=== PATIENT | female | born 1970 | race Caucasian/White ===

== ENCOUNTER → 2017-10-24 08:29 | Outpatient (CLI) | payer OTHER, SELFPAY ==
[2017-10-24 09:16] LABS: Add Manual Diff / Slide Review NO; Basophils Percent Auto 0.7 % (0-2); Hematocrit 41.6 % (36-46); Hemoglobin 13.8 g/dL (12.0-16.0); Lymphocytes Percent Auto 26.2 % (25-40); Mean Corpuscular HGB Conc 33.1 % (30-36); Mean Corpuscular Hemoglobin 27.9 PG (26-34); Mean Corpuscular Volume 84.2 fL (80-100); Monocytes Percent Auto 8.1 % (3-14); Neutrophils Absolute Auto 6000 /uL (3000-5900); Platelet Count 304 X10^3/uL (150-400); Red Blood Cell Count 4.94 X10^6/uL (4.0-5.2); Red Cell Distribution Width 15.5 % (11.6-14.8); White Blood Cell Count 9.5 X10^3/uL (4.5-11.0)
[2017-10-24 09:41] LABS: Alanine Aminotransferase 32 IU/L (9-52); Albumin 4.4 g/dL (3.5-5.0); Albumin Globulin Ratio 1.5 (1.0-2.8); Alkaline Phosphatase 34 U/L (38-126); BUN Creatinine Ratio 16.7 (6-22); Bilirubin Total 0.7 mg/dL (0.2-1.3); Blood Urea Nitrogen 10 mg/dL (7-17); Calcium 8.8 mg/dL (8.4-10.2); Carbon Dioxide 28 mmol/L (22-32); Chloride 99 mmol/L (98-107); Cholesterol 200 mg/dL (140-199); Estimated Glomerular Filt Rate > 60.0 mL/min (>60); Globulin 2.9 g/dL (1.7-4.1); Glucose 96 mg/dL (70-100); HDL Cholesterol 52 mg/dL (40-60); LDL Cholesterol Calculated 129 mg/dL (<100); Sodium 140 mmol/L (137-145); Total Protein 7.3 g/dL (6.3-8.2); Triglycerides 97 mg/dL (35-150)
[2017-10-24 09:42] LABS: Aspartate Aminotransferase 34 IU/L (14-36); HEMOLYSIS 65 (0-50); Potassium 3.5 mmol/L (3.4-5.1)
== END ==
PROVIDERS: PCP Family Medicine; Visit Provider Family Medicine
DX: E03.9 Hypothyroidism, unspecified (principal); I10 Essential (primary) hypertension
CPT/HCPCS: 36415; 80053; 80061; 85025

== ENCOUNTER → 2018-08-14 12:25 | Outpatient (CLI) | payer OTHER, SELFPAY ==
[2018-08-14 15:00] LABS: Thyroid Stimulating Hormone 3.42 uIU/mL (0.47-4.68)
== END ==
PROVIDERS: PCP Family Medicine; Visit Provider Family Medicine
DX: E03.9 Hypothyroidism, unspecified (principal)
CPT/HCPCS: 36415; 84443

== ENCOUNTER → 2019-09-12 09:09 | Outpatient (CLI) | payer OTHER, SELFPAY ==
[2019-09-12 10:03] LABS: Cholesterol 208 mg/dL (140-199); HDL Cholesterol 36 mg/dL (40-60); LDL Cholesterol Calculated 149 mg/dL (<100); Triglycerides 117 mg/dL (35-150)
[2019-09-12 10:33] LABS: Thyroid Stimulating Hormone 7.22 uIU/mL (0.47-4.68)
== END ==
PROVIDERS: PCP Family Medicine; Referring Provider Family Medicine; Visit Provider Family Medicine
DX: I10 Essential (primary) hypertension (principal); E03.9 Hypothyroidism, unspecified
CPT/HCPCS: 36415; 80061; 84443

== ENCOUNTER → 2019-11-30 10:00 | Outpatient (CLI) | payer OTHER, SELFPAY ==
[2019-11-30 10:50] LABS: Add Manual Diff / Slide Review NO; Basophils Absolute Auto 100 /uL (0-100); Basophils Percent Auto 0.8 % (0-2); Eosinophils Absolute Auto 200 /uL (0-450); Hematocrit 40.1 % (36-46); Hemoglobin 13.3 g/dL (12.0-16.0); Lymphocytes Absolute Auto 2000 /uL (1100-4500); Lymphocytes Percent Auto 25.9 % (25-40); Mean Corpuscular HGB Conc 33.1 % (30-36); Mean Corpuscular Hemoglobin 27.5 PG (26-34); Monocytes Absolute Auto 600 /uL (0-900); Monocytes Percent Auto 7.6 % (3-14); Neutrophils Absolute Auto 5000 /uL (1500-7000); Neutrophils Percent Auto 63.7 % (50-75); Platelet Count 390 X10^3/uL (150-400); Red Blood Cell Count 4.83 X10^6/uL (4.0-5.2); Red Cell Distribution Width 15.1 % (11.6-14.8); White Blood Cell Count 7.9 X10^3/uL (4.5-11.0)
[2019-11-30 11:17] LABS: BUN Creatinine Ratio 16.1 (6-22); Blood Urea Nitrogen 10 mg/dL (7-17); Calcium 9.2 mg/dL (8.4-10.2); Carbon Dioxide 28 mmol/L (22-32); Chloride 101 mmol/L (98-107); Estimated Glomerular Filt Rate > 60.0 mL/min (>60); Glucose 96 mg/dL (70-100); HEMOLYSIS < 15 (0-50); Potassium 3.6 mmol/L (3.4-5.1); Sodium 138 mmol/L (137-145)
[2019-11-30 14:25] LABS: Thyroid Stimulating Hormone 2.88 uIU/mL (0.47-4.68)
== END ==
PROVIDERS: PCP Family Medicine; Referring Provider Family Medicine; Visit Provider Family Medicine
DX: E03.9 Hypothyroidism, unspecified (principal); I10 Essential (primary) hypertension
CPT/HCPCS: 36415; 80048; 84443; 85025

== ENCOUNTER → 2020-08-08 10:57 | Outpatient (CLI) | payer OTHER, SELFPAY ==
[2020-08-08 11:41] LABS: Add Manual Diff / Slide Review NO; Basophils Absolute Auto 100 /uL (0-100); Eosinophils Absolute Auto 100 /uL (0-450); Eosinophils Percent Auto 1.9 % (2-4); Hematocrit 37.8 % (36-46); Hemoglobin 12.5 g/dL (12.0-16.0); Lymphocytes Absolute Auto 2000 /uL (1100-4500); Lymphocytes Percent Auto 28.8 % (25-40); Mean Corpuscular HGB Conc 33.1 % (30-36); Mean Corpuscular Hemoglobin 25.8 PG (26-34); Monocytes Absolute Auto 600 /uL (0-900); Monocytes Percent Auto 8.4 % (3-14); Neutrophils Absolute Auto 4200 /uL (1500-7000); Neutrophils Percent Auto 59.9 % (50-75); Platelet Count 412 X10^3/uL (150-400); Red Blood Cell Count 4.84 X10^6/uL (4.0-5.2); Red Cell Distribution Width 16.9 % (11.6-14.8)
[2020-08-08 12:06] LABS: Alanine Aminotransferase 21 IU/L (<35); Albumin 4.2 g/dL (3.5-5.0); Albumin Globulin Ratio 1.6 (1.0-2.8); Alkaline Phosphatase 47 U/L (38-126); Aspartate Aminotransferase 29 IU/L (14-36); BUN Creatinine Ratio 17.4 (6-22); Bilirubin Total 0.4 mg/dL (0.2-1.3); Blood Urea Nitrogen 12 mg/dL (7-17); Calcium 9.2 mg/dL (8.4-10.2); Carbon Dioxide 29 mmol/L (22-32); Chloride 100 mmol/L (98-107); Cholesterol 188 mg/dL (140-199); Estimated Glomerular Filt Rate > 60.0 mL/min (>60); Globulin 2.6 g/dL (1.7-4.1); Glucose 96 mg/dL (70-100); HDL Cholesterol 35 mg/dL (40-60); HEMOLYSIS < 15 (0-50); LDL Cholesterol Calculated 121 mg/dL (<100); Potassium 3.5 mmol/L (3.4-5.1); Sodium 138 mmol/L (137-145); Total Protein 6.8 g/dL (6.3-8.2); Triglycerides 161 mg/dL (35-150)
[2020-08-08 12:43] LABS: Thyroid Stimulating Hormone 4.95 uIU/mL (0.47-4.68)
[2020-08-08 15:49] LABS: Creatinine Urine Random 459.5 mg/dL; Microalbumi Creatinin Ratio Ur 60.7 ug/mg CR (<30); Microalbumin Urine Random 27.9 mg/dL (0-1.6)
== END ==
PROVIDERS: PCP Family Medicine; Referring Provider Family Medicine; Visit Provider Family Medicine
DX: E03.9 Hypothyroidism, unspecified (principal); I10 Essential (primary) hypertension
CPT/HCPCS: 36415; 80053; 80061; 82043; 82570; 84443; 85025

== ENCOUNTER → 2020-08-24 07:49 | Outpatient (CLI) | payer OTHER, SELFPAY ==
[2020-08-24] MEDS: COVID-19 VACC #1, MRNA(MOD) 100 MCG/0.5 ML VIAL IM (08:04)
== END ==
PROVIDERS: PCP Family Medicine; Visit Provider Internal Medicine
DX: Z23 Encounter for immunization (principal)
CPT/HCPCS: 0011A; 91301

== ENCOUNTER → 2020-09-21 07:40 | Outpatient (CLI) | payer OTHER, SELFPAY ==
[2020-09-21] MEDS: COVID-19 VACC #2, MRNA(MOD) 100 MCG/0.5 ML VIAL IM (07:56)
== END ==
PROVIDERS: PCP Family Medicine; Visit Provider Internal Medicine
DX: Z23 Encounter for immunization (principal)
CPT/HCPCS: 0012A; 91301

== ENCOUNTER → 2021-07-06 08:10 | Outpatient (CLI) | payer OTHER, SELFPAY ==
[2021-07-06 09:22] LABS: Add Manual Diff / Slide Review NO; Basophils Absolute Auto 100 /uL (0-100); Basophils Percent Auto 0.6 % (0-2); Eosinophils Absolute Auto 200 /uL (0-450); Eosinophils Percent Auto 1.9 % (2-4); Hematocrit 38.7 % (36-46); Hemoglobin 12.9 g/dL (12.0-16.0); Lymphocytes Absolute Auto 2600 /uL (1100-4500); Mean Corpuscular HGB Conc 33.3 % (30-36); Mean Corpuscular Hemoglobin 26.3 PG (26-34); Mean Corpuscular Volume 78.9 fL (80-100); Monocytes Absolute Auto 700 /uL (0-900); Monocytes Percent Auto 6.8 % (3-14); Neutrophils Absolute Auto 6100 /uL (1500-7000); Neutrophils Percent Auto 63.7 % (50-75); Platelet Count 373 X10^3/uL (150-400); Red Cell Distribution Width 17.3 % (11.6-14.8); White Blood Cell Count 9.6 X10^3/uL (4.5-11.0)
[2021-07-06 09:54] LABS: Alanine Aminotransferase 23 IU/L (<35); Albumin 4.3 g/dL (3.5-5.0); Albumin Globulin Ratio 1.7 (1.0-2.8); Alkaline Phosphatase 50 U/L (38-126); Aspartate Aminotransferase 31 IU/L (14-36); BUN Creatinine Ratio 11.5 (6-22); Bilirubin Total 0.5 mg/dL (0.2-1.3); Blood Urea Nitrogen 7 mg/dL (7-17); Calcium 9.4 mg/dL (8.4-10.2); Carbon Dioxide 29 mmol/L (22-32); Chloride 99 mmol/L (98-107); Cholesterol 196 mg/dL (140-199); Estimated Glomerular Filt Rate > 60.0 mL/min (>60); Globulin 2.5 g/dL (1.7-4.1); Glucose 103 mg/dL (70-100); HDL Cholesterol 48 mg/dL (40-60); HEMOLYSIS < 15 (0-50); LDL Cholesterol Calculated 117 mg/dL (<100); Potassium 3.4 mmol/L (3.4-5.1); Sodium 137 mmol/L (137-145); Total Protein 6.8 g/dL (6.3-8.2); Triglycerides 153 mg/dL (35-150)
[2021-07-06 10:16] LABS: Thyroid Stimulating Hormone 5.78 uIU/mL (0.47-4.68)
== END ==
PROVIDERS: PCP Family Medicine; Referring Provider Family Medicine; Visit Provider Family Medicine
DX: E03.9 Hypothyroidism, unspecified (principal); I10 Essential (primary) hypertension
CPT/HCPCS: 36415; 80053; 80061; 84443; 85025

== ENCOUNTER → 2021-07-17 09:27 | Outpatient (CLI) | payer OTHER, SELFPAY ==
--- NOTE | 2021-07-17 09:30 | DI.RAD.S_ITS ---
PROCEDURE: XR FOOT RT MIN 3V INDICATIONS: 5th metatarsal pain TECHNIQUE: 3 views of the foot were acquired. COMPARISON: None. FINDINGS: Bones: No fractures or dislocations. No suspicious bony lesions. Soft tissues: No tibiotalar joint effusion. Achilles tendon appears normal. IMPRESSION: No osseous lesion. If symptoms and/or clinical suspicion for pathology persists, further assessment with advanced imaging (e.g. CT, MRI or bone scan) should be considered. Dictated by: Triny Whipple MD, PhD on 07/17/2021 at 15:09 Approved by: Triny Whipple MD, PhD on 07/17/2021 at 15:10
== END ==
PROVIDERS: PCP Family Medicine; Referring Provider Family Medicine; Visit Provider Family Medicine
DX: M79.671 Pain in right foot (principal)
CPT/HCPCS: 73630

== ENCOUNTER → 2022-08-28 10:34 | Outpatient (CLI) | payer OTHER, SELFPAY ==
[2022-08-28 11:29] LABS: Add Manual Diff / Slide Review NO; Basophils Absolute Auto 100 /uL (0-100); Eosinophils Absolute Auto 100 /uL (0-450); Eosinophils Percent Auto 2.1 % (2-4); Hematocrit 41.5 % (36-46); Hemoglobin 13.8 g/dL (12.0-16.0); Lymphocytes Absolute Auto 2500 /uL (1100-4500); Lymphocytes Percent Auto 34.7 % (25-40); Mean Corpuscular HGB Conc 33.3 % (30-36); Mean Corpuscular Hemoglobin 27.2 PG (26-34); Mean Corpuscular Volume 81.8 fL (80-100); Monocytes Absolute Auto 600 /uL (0-900); Monocytes Percent Auto 8.4 % (3-14); Neutrophils Absolute Auto 3800 /uL (1500-7000); Neutrophils Percent Auto 53.8 % (50-75); Platelet Count 402 X10^3/uL (150-400); Red Blood Cell Count 5.07 X10^6/uL (4.0-5.2); Red Cell Distribution Width 17.4 % (11.6-14.8); White Blood Cell Count 7.1 X10^3/uL (4.5-11.0)
[2022-08-28 11:57] LABS: Alanine Aminotransferase 23 IU/L (<35); Albumin 4.2 g/dL (3.5-5.0); Albumin Globulin Ratio 1.3 (1.0-2.8); Alkaline Phosphatase 51 U/L (38-126); Aspartate Aminotransferase 27 IU/L (14-36); BUN Creatinine Ratio 18.9 (6-22); Bilirubin Total 0.5 mg/dL (0.2-1.3); Blood Urea Nitrogen 10 mg/dL (7-17); Calcium 8.9 mg/dL (8.4-10.2); Carbon Dioxide 29 mmol/L (22-32); Chloride 100 mmol/L (98-107); Cholesterol 232 mg/dL (140-199); Estimated Glomerular Filt Rate > 60 mL/min (>60); Globulin 3.2 g/dL (1.7-4.1); Glucose 102 mg/dL (70-100); HDL Cholesterol 47 mg/dL (40-60); HEMOLYSIS < 15 (0-50); LDL Cholesterol Calculated 157 mg/dL (<100); Potassium 3.3 mmol/L (3.4-5.1); Sodium 136 mmol/L (137-145); Total Protein 7.4 g/dL (6.3-8.2); Triglycerides 140 mg/dL (35-150)
[2022-08-28 12:26] LABS: TSH w/ Reflex to FT4 3.88 uIU/mL (0.47-4.68)
== END ==
PROVIDERS: PCP Family Medicine; Referring Provider Physician Assistant; Visit Provider Physician Assistant
DX: E03.9 Hypothyroidism, unspecified (principal); I10 Essential (primary) hypertension; J45.20 Mild intermittent asthma, uncomplicated; E78.5 Hyperlipidemia, unspecified
CPT/HCPCS: 36415; 80053; 80061; 84443; 85025

== ENCOUNTER → 2022-09-01 09:24 | Outpatient (CLI) | payer OTHER, SELFPAY ==
[2022-09-03 18:17] LABS: Fecal Immunochemical Test Negative (Negative)
== END ==
PROVIDERS: PCP Family Medicine; Referring Provider Physician Assistant; Visit Provider Physician Assistant
DX: Z12.11 Encounter for screening for malignant neoplasm of colon (principal); Z12.12 Encounter for screening for malignant neoplasm of rectum
CPT/HCPCS: 82274

== ENCOUNTER → 2022-09-12 10:30 | Outpatient (CLI) | payer OTHER, SELFPAY ==
--- NOTE | 2022-09-12 11:00 | DI.MRI.S_ITS ---
PROCEDURE: MR KNEE LT WO CON INDICATIONS: Suspect meniscal tear left knee TECHNIQUE: Noncontrast sagittal PD fast spin echo and T2 fast spin echo with fat saturation, sagittal 3-D FLASH with fat saturation; coronal T1 spin echo and PD fast spin echo with fat saturation, and axial PD fast spin echo with fat saturation through the knee. COMPARISON: None. FINDINGS: Image quality: Degraded by motion artifact Menisci: Amorphous and linear horizontal high T2 signal intensity traverses the middle, and peripheral thirds of the medial meniscal body and posterior horn demonstrating superior and inferior articular surface extension, indicating complex tearing. Lateral meniscus is grossly intact. Cruciate ligaments: The anterior and posterior cruciate ligaments appear intact. Medial structures: The medial collateral ligament appears intact. Visualized portions of the pes anserinus tendons appear normal. No abnormal bursal fluid. Lateral structures: The lateral collateral ligament, long and short heads of the biceps femoris tendon appear intact. The popliteus tendon appears normal. Iliotibial band appears normal. Anterior structures: The quadriceps and patellar tendons appear intact. Patellar alignment is normal. No femoral trochlear dysplasia or ventral trochlear prominence. No edema in the infrapatellar fat pad. Bones and cartilage: No bone marrow contusions or fractures. Mild subchondral degenerative marrow edema within the weight-bearing aspects of the medial femoral condyle and medial tibial plateau. Moderate tricompartmental periarticular osteophyte formation. Severe articular cartilage loss diffusely overlies the weight-bearing aspects of the medial femoral condyle and medial tibial plateau. Focal region of high-grade articular cartilage loss overlies the patellar apex measuring 5 mm. Moderate articular cartilage loss overlies the central femoral trochlea. Joint space: There is a moderate knee joint effusion and a small ganglion cyst along the popliteus No Vizcarra's cyst. Normal appearing synovial plicae are incidentally noted. IMPRESSION: 1. Tricompartmental osteoarthritis with associated articular cartilage loss. 2. Medial meniscal tearing. 3. Knee joint effusion. Dictated by: Chris Esparza M.D. on 09/12/2022 at 12:09 Transcribed by: JONATHAN on 09/12/2022 at 12:11 Approved by: Chris Esparza M.D. on 09/12/2022 at 16:18
== END ==
PROVIDERS: PCP Family Medicine; Referring Provider Physician Assistant; Visit Provider Physician Assistant
DX: S83.232A Complex tear of medial meniscus, current injury, left knee, initial encounter (principal); M17.12 Unilateral primary osteoarthritis, left knee; M23.92 Unspecified internal derangement of left knee; M25.462 Effusion, left knee
CPT/HCPCS: 73721

== ENCOUNTER → 2022-10-09 12:03 | Outpatient (CLI) | payer OTHER, SELFPAY ==
[2022-10-09 13:50] LABS: Erythrocyte Sedimentation Rate 4 MM/HR (0-20)
[2022-10-09 14:12] LABS: BUN Creatinine Ratio 19.6 (6-22); Blood Urea Nitrogen 11 mg/dL (7-17); C-Reactive Protein Quant 1.7 mg/dL (<1.0); Carbon Dioxide 31 mmol/L (22-32); Chloride 96 mmol/L (98-107); Estimated Glomerular Filt Rate > 60 mL/min (>60); Glucose 98 mg/dL (70-100); HEMOLYSIS < 15 (0-50); Potassium 3.3 mmol/L (3.4-5.1); Sodium 137 mmol/L (137-145)
[2022-10-12 22:38] LABS: ANA Screen, IFA Negative (.)
== END ==
PROVIDERS: PCP Family Medicine; Referring Provider Physician Assistant; Visit Provider Physician Assistant
DX: I10 Essential (primary) hypertension (principal); R23.2 Flushing; Z82.69 Family history of other diseases of the musculoskeletal system and connective tissue
CPT/HCPCS: 36415; 80048; 85651; 86038; 86140

== ENCOUNTER → 2022-10-17 07:39 | Outpatient (CLI) | payer OTHER, SELFPAY | PROVIDERS: PCP Family Medicine; Referring Provider Physician Assistant; Visit Provider Physician Assistant | DX: R00.2 Palpitations (principal) | CPT/HCPCS: 93246 ==

== ENCOUNTER → 2022-12-04 15:02 | Outpatient (CLI) | payer OTHER, SELFPAY ==
--- NOTE | 2022-12-04 15:04 | DI.US.S_ITS ---
PROCEDURE: US PELVIC COMPLETE INDICATIONS: ABNORMAL VAGINAL BLEEDING. REPORT ENDOMETRIUM THICKNESS. TECHNIQUE: Real-time scanning was performed of the pelvic organs, with image documentation. Additional endovaginal scanning was necessary due to incomplete visualization of the adnexal and endometrial structures by transabdominal scanning. COMPARISON: None. FINDINGS: Uterus: Uterus is anteverted and normal in size at 1.1 x 6.3 x 4.9 cm. The myometrium is heterogeneous. The endometrium measures 9.0 mm combined thickness. Intramural fibroid measuring 2.5 cm. Myometrial cyst measuring 1.4 cm. Punctate echogenic foci involving the cervix likely retained blood products. Ovaries: Ovaries not identified. No adnexal masses seen. Other: No pathologic free abdominal or pelvic fluid. IMPRESSION: 1. Intramural fibroid measuring 2.5 cm. 2. Myometrial cyst is present and echogenic foci involving the cervix likely retained blood products. 3. Ovaries not identified. We strive to produce accurate, complete, and clear reports of imaging services. To assist us in improving patient care, this report was composed using standard report templates and voice recognition software. Therefore, it may contain abnormal punctuation, insertions and/or omissions. Occasional wrong-word or sound-alike substitutions may occur. Though we review the report and make efforts to correct it, we do recommend that the report be read carefully in proper context to recognize any text inaccuracies. Dictated by: Gunner MAXWELL Interpreted: Edvin Diehl MD on 12/04/2022 at 15:49 Transcribed by: DEO on 12/04/2022 at 15:52 Approved by: Edvin Diehl M.D. on 12/05/2022 at 11:47
--- NOTE | 2022-12-04 15:04 | DI.MG.S_ITS ---
BILATERAL DIGITAL SCREENING MAMMOGRAM 3D/2D WITH CAD: 12/04/2022 CLINICAL: Baseline exam. Routine screening. Family history of breast cancer. No prior exams were available for comparison. There are scattered areas of fibroglandular density in both breasts (category b / 25%-50% glandular tissue). Current study was also evaluated with a Computer Aided Detection (CAD) system. There is an asymmetry in the right breast middle depth lateral region seen on the craniocaudal view only. There is possible architectural distortion associated with the asymmetry. No other significant masses, calcifications, or other findings are seen in either breast. IMPRESSION: INCOMPLETE: NEEDS ADDITIONAL IMAGING EVALUATION The asymmetry in the right breast is indeterminate. Additional views with possible ultrasound are recommended. Based on the Tyrer Cuzick model (a risk assessment model) the patient's lifetime risk is 11.1% and her 10 year risk is 2.9%. According to the ACR, ACS, and NCCN guidelines, an annual breast MRI exam along with mammogram is recommended if the patient's lifetime risk is 20% or greater. This exam was interpreted at Station ID: [id number]. NOTE: For mammograms, a report in lay terms will be sent to the patient. Approximately 15% of breast malignancies will not be visualized mammographically. In the management of a palpable breast mass, a negative mammogram must not discourage biopsy of a clinically suspicious lesion. Electronically Signed By: Ne aleman/:12/05/2022 12:17:56 letter sent: Additional Imaging Needed ACR BI-RADS Category 0: Incomplete 3340F
== END ==
PROVIDERS: PCP Family Medicine; Referring Provider Physician Assistant; Visit Provider Physician Assistant
DX: Z12.31 Encounter for screening mammogram for malignant neoplasm of breast (principal); Z80.3 Family history of malignant neoplasm of breast; N92.4 Excessive bleeding in the premenopausal period; D25.1 Intramural leiomyoma of uterus; N85.8 Other specified noninflammatory disorders of uterus
CPT/HCPCS: 76830; 76856; 77063; 77067

== ENCOUNTER → 2022-12-24 11:31 | Outpatient (CLI) | payer OTHER, SELFPAY ==
[2022-12-24 13:20] LABS: BUN Creatinine Ratio 16.7 (6-22); Blood Urea Nitrogen 9 mg/dL (7-17); Calcium 9.2 mg/dL (8.4-10.2); Carbon Dioxide 30 mmol/L (22-32); Chloride 97 mmol/L (98-107); Cholesterol 204 mg/dL (140-199); Estimated Glomerular Filt Rate > 60 mL/min (>60); Glucose 108 mg/dL (70-100); HDL Cholesterol 40 mg/dL (40-60); HEMOLYSIS < 15 (0-50); LDL Cholesterol Calculated 134 mg/dL (<100); Potassium 3.2 mmol/L (3.4-5.1); Sodium 136 mmol/L (137-145); Triglycerides 150 mg/dL (35-150)
[2022-12-24 13:26] LABS: C-Reactive Protein Quant 1.7 mg/dL (<1.0)
[2022-12-24 13:32] LABS: Total Iron Binding Capacity 344 ug/dL (265-497)
[2022-12-24 13:37] LABS: Iron 76 ug/dL (37-170); Percent Iron Saturation 22 % (15-50)
[2022-12-24 13:47] LABS: Ferritin 22 ng/mL (11-264)
== END ==
PROVIDERS: PCP Family Medicine; Referring Provider Pediatrics; Visit Provider Physician Assistant
DX: G25.81 Restless legs syndrome (principal); D50.9 Iron deficiency anemia, unspecified; G47.61 Periodic limb movement disorder; E78.5 Hyperlipidemia, unspecified; E87.6 Hypokalemia; I10 Essential (primary) hypertension
CPT/HCPCS: 36415; 80048; 80061; 82728; 83540; 83550; 86140

== ENCOUNTER → 2023-01-01 11:55 | Outpatient (CLI) | payer OTHER, SELFPAY ==
--- NOTE | 2023-01-01 11:56 | DI.MG.S_ITS ---
UNILATERAL RIGHT DIGITAL DIAGNOSTIC MAMMOGRAM 3D/2D WITH ADDITIONAL VIEWS: 01/01/2023 CLINICAL: Additional evaluation requested from prior study. Comparison is made to exam dated: 12/04/2022 mammogram - [facility]. There are scattered areas of fibroglandular density in the right breast (category b / 25%-50% glandular tissue). There is an irregular asymmetry in the right breast middle depth lateral region seen on the craniocaudal view only. This is less prominent. No other significant masses or calcifications are seen in the breast. IMPRESSION: INCOMPLETE: NEEDS ADDITIONAL IMAGING EVALUATION The irregular asymmetry in the right breast resembles fibroglandular tissue and is indeterminate. A targeted ultrasound is recommended and will immediately follow. Based on the Tyrer Cuzick model (a risk assessment model) the patient's lifetime risk is 8.4% and her 10 year risk is 2.2%. According to the ACR, ACS, and NCCN guidelines, an annual breast MRI exam along with mammogram is recommended if the patient's lifetime risk is 20% or greater. This exam was interpreted at Station ID: [id number]. NOTE: For mammograms, a report in lay terms will be sent to the patient. Approximately 15% of breast malignancies will not be visualized mammographically. In the management of a palpable breast mass, a negative mammogram must not discourage biopsy of a clinically suspicious lesion. Electronically Signed By: Jerzy Anna M.D. [facility] [place]/:01/01/2023 12:26:35 ACR BI-RADS Category 0: Incomplete 3340F
--- NOTE | 2023-01-01 11:56 | DI.US.S_ITS ---
LIMITED ULTRASOUND OF RIGHT BREAST: 01/01/2023 CLINICAL: Patient returns today to evaluate a focal asymmetry in the right breast. Comparison is made to exams dated: 12/04/2022 mammogram and 01/01/2023 mammogram - [facility]. Color flow and real-time ultrasound of the right breast 9-10 o'clock region were performed. Hercules scale images of the real-time examination were reviewed. There is a benign 1 cm x 0.8 cm x 0.5 cm normal lymph node with a circumscribed margin in the right breast at 9 o'clock middle depth 9 cm from the nipple. This normal lymph node displays fatty hilum. This correlates with mammography findings. Color flow imaging demonstrates that there is no vascularity present. IMPRESSION: BENIGN There is no sonographic evidence of malignancy. The 1 cm normal lymph node in the right breast is benign. Exam findings were conveyed to the patient. A 1 year screening mammogram is recommended. This exam was interpreted at Station ID: [id number]. Electronically Signed By: Jerzy Anna M.D. [facility]/:01/01/2023 14:21:44 letter sent: Normal Exam Ultrasound BI-RADS: 2 Benign
== END ==
PROVIDERS: PCP Family Medicine; Referring Provider Physician Assistant; Visit Provider Physician Assistant
DX: R92.8 Other abnormal and inconclusive findings on diagnostic imaging of breast (principal)
CPT/HCPCS: 76642; 77065; G0279

== ENCOUNTER → 2023-02-21 12:45 | Outpatient (CLI) | payer OTHER, SELFPAY ==
[2023-02-21 15:21] LABS: Ferritin 14 ng/mL (11-264)
[2023-02-21 15:49] LABS: Iron 113 ug/dL (37-170)
[2023-02-21 15:57] LABS: C-Reactive Protein Quant 1.2 mg/dL (<1.0)
[2023-02-21 16:01] LABS: Total Iron Binding Capacity 364 ug/dL (265-497)
[2023-02-21 16:09] LABS: Prolactin 34.7 ng/mL (3.0-18.6)
== END ==
PROVIDERS: PCP Family Medicine; Referring Provider Pediatrics; Visit Provider Pediatrics
DX: G25.81 Restless legs syndrome (principal); D50.9 Iron deficiency anemia, unspecified; N92.0 Excessive and frequent menstruation with regular cycle
CPT/HCPCS: 36415; 82728; 83540; 83550; 84146; 86140

== ENCOUNTER → 2023-03-14 09:08 | Outpatient (CLI) | payer OTHER, SELFPAY ==
--- NOTE | 2023-03-14 09:09 | DI.MRI.S_ITS ---
PROCEDURE: MR BRAIN (PITUITARY) WWO CON INDICATIONS: elevated prolactin TECHNIQUE: Noncontrast sagittal and axial FLAIR, axial gradient echo, axial diffusion and ADC through the brain. Thin-slice sagittal and coronal T1 spin echo, coronal T2 fast spin echo through the pituitary. After the administration contrast, optional dynamic coronal T1 spin echo, thin-slice coronal and sagittal T1 spin echo images through the pituitary fossa; axial and coronal and sagittal T1 spin echo with fat saturation through the brain. COMPARISON: None. FINDINGS: Image quality: Excellent. Pituitary Gland: In the anterior superior aspect of the anterior lobe of the pituitary gland on the right, there is a small nodule of delayed enhancement measuring 2.0 x 3.2 x 2.5 mm. No deviation of the infundibular stalk. No suprasellar extension. Optic chiasm unremarkable. Appropriate flow voids noted in the cavernous sinuses CSF Spaces: Ventricles are normal in size and shape. Basal cisterns are patent. No extra-axial fluid collections. Brain: No intracranial bleeds or mass effects. No abnormal intracranial enhancement. Hercules-white matter interface is intact. Diffusion weighted images demonstrate no acute ischemic insults. Brainstem is normal. Normal intravascular flow voids are present. Skull and face: Calvarial marrow is normal in signal. Orbits appear normal. Sinuses: Sinuses and mastoids are clear. IMPRESSION: Small 3 mm pituitary microadenoma. No mass effect or suprasellar extension. Approved by: Kody Delgado M.D. on 03/14/2023 at 15:42
== END ==
PROVIDERS: PCP Family Medicine; Referring Provider Family Medicine; Visit Provider Family Medicine
DX: D35.2 Benign neoplasm of pituitary gland (principal); R79.89 Other specified abnormal findings of blood chemistry
CPT/HCPCS: 70553; A9579

== ENCOUNTER → 2023-04-10 13:49 | Outpatient (CLI) | payer OTHER, SELFPAY ==
[2023-04-10 14:49] LABS: BUN Creatinine Ratio 13.6 (6-22); Blood Urea Nitrogen 8 mg/dL (7-17); Calcium 9.7 mg/dL (8.4-10.2); Carbon Dioxide 31 mmol/L (22-32); Chloride 97 mmol/L (98-107); Estimated Glomerular Filt Rate > 60 mL/min (>60); Glucose 117 mg/dL (70-100); HEMOLYSIS < 15 (0-50); Potassium 3.3 mmol/L (3.4-5.1); Sodium 136 mmol/L (137-145)
== END ==
PROVIDERS: PCP Family Medicine; Referring Provider Internal Medicine Cardiovascular Disease; Visit Provider Internal Medicine Cardiovascular Disease
DX: I10 Essential (primary) hypertension (principal)
CPT/HCPCS: 36415; 80048

== ENCOUNTER → 2023-06-14 08:11 | Outpatient (CLI) | payer OTHER, SELFPAY ==
--- NOTE | 2023-06-14 | DI.ECHO.S_ITS ---
[facility] +---------+ : : [address] : : : : [id number] : : : : Phone: [phone]+ Echocardiogram Report + + :Name: ARCHIE YLMAN Study Date: 06/14/2023 Height: 62 in : :[facility] ReadingLocation: Weight: 215 lb : : Gender: Female BSA: 2.0 m2 : :: 1970 Age: 53 yrs BP: 130/82 mmHg: :Reason For Study: OTHER SUPRAVENTRICULAR TACHYCARDIA : :Ordering Physician: GUIDO, : :LIBERTAD Performed By: Kendall Davis : :Referring: LIBERTAD GALEANO : + + Interpretation Summary 1) Normal left ventricular thickness, size, wall motion, and systolic function (EF 55-60%). 2) Normal right ventricular size and function. 3) No significant valvular abnormalities. 4) No prior Echo available for comparison. Procedure: A two-dimensional transthoracic echocardiogram with color flow and Doppler was performed. The study quality was technically adequate. There is no prior echocardiogram noted for this patient. The patient was in normal sinus rhythm during the exam. The heart rate ranged between 72-81 bpm during the study. Left Ventricle: The left ventricle is normal in size and wall thickness. The ejection fraction is estimated to be 55-60%. Left ventricular systolic function appears normal without focal wall motion abnormalities. Diastolic parameters suggest probable normal left ventricular diastolic function and normal filling pressures. Right Ventricle: The right ventricle is normal in size and function. Atria: The left atrial size is normal. Right atrial size is normal. Mitral Valve: The mitral valve is normal in structure and function. There is no mitral valve stenosis. There is no mitral regurgitation noted. Aortic Valve: The aortic valve is trileaflet. There is no aortic valve stenosis. No aortic regurgitation is present. Tricuspid Valve: The tricuspid valve is normal in structure and function. There is no tricuspid stenosis. No tricuspid regurgitation. Pulmonic Valve: The pulmonic valve is not well visualized. There is no pulmonic valvular stenosis. There is no pulmonic valvular regurgitation. Great Vessels: The aortic root is normal size. The dimensions of the ascending aorta are normal. The inferior vena cava appeared normal. Pericardium/ Pleura There is no pericardial effusion. There has been no significant change since the previous study. MMode/2D Measurements & Calculations LVIDd: 3.9 cm LVOT diam: 2.0 cm LVIDs: 2.6 cm Ao root diam: 3.1 cm FS: 33.8 % Ao Arch Diam (Prox Trans): 2.8 cm IVSd: 1.1 cm LVPWd: 1.0 cm LV ordoñez. diameter/BSA (cm/m^2): 2.0 LV sys. diameter/BSA (cm/m^2): 1.3 LA A2 area: 16.6 cm2 RA long axis: 3.9 cm LA A4 area: 12.5 cm2 RA area: 11.4 cm2 LA length (vol): 4.0 cm RA vol: 28.6 ml LA vol: 44.2 ml RA : 14.5 ml/m2 LA vol index: 22.4 ml/m2 RVD1 (basal): 3.4 cm RVD2 (mid): 3.3 cm TAPSE: 3.1 cm Doppler Measurements & Calculations Ao V2 max: 118.2 cm/sec LVOT Max Karlo: 106.4 cm/sec Ao V2 mean: 85.6 cm/sec LV V1 max P.5 mmHg Ao max P.6 mmHg LV V1 VTI: 24.0 cm Ao mean P.2 mmHg JUANITA(I,D): 2.8 cm2 Ao V2 VTI: 26.7 cm JUANITA(V,D): 2.8 cm2 sev ratio: 0.90 JUANITA indexed to BSA (cm^2/m^2): 1.4 MV E max karlo: 86.6 cm/sec PA V2 max: 126.1 cm/sec MV A max karlo: 89.4 cm/sec PA V2 mean: 83.2 cm/sec MV E/A: 0.97 PA mean P.2 mmHg Med Peak E' Karlo: 9.6 cm/sec PA pr(Accel): 17.3 mmHg E/E' med: 9.0 Lat Peak E' Karlo: 11.4 cm/sec E/E' lat: 7.6 E/e' average: 8.3 MV dec time: 0.27 sec SV(LVOT): 74.4 ml Reading Physician:12:43 PM
--- NOTE | 2023-06-18 03:59 | DI.NM.S_ITS ---
DATE OF SERVICE: 06/14/2023 PROCEDURE: Exercise perfusion study. INDICATIONS: Nonsustained ventricular tachycardia, palpitation, hypertension. RADIOPHARMACEUTICAL: 27.5 millicurie technetium-99m Myoview IV was injected at stress and 25.7 millicurie technetium-99m Myoview IV was injected at rest. CARDIAC STRESS: The patient underwent exercise perfusion study under the supervision of an attending staff. The patient walked on Madan protocol for 4 minutes and 28 seconds, achieved maximum heart rate of 154, which was 92 percent of target heart rate. 7 METs of workload. ANURAG positive 39%. Resting blood pressure 120/80 mmHg. Peak blood pressure 160/80 mmHg. No chest pain or anginal symptoms. The patient had shortness of breath. Baseline rhythm was sinus. During stress, no convincing ischemic changes seen. Occasional PVCs and ventricular couplets without any ventricular tachycardia. RAW DATA: There is a breast shadow seen. The patient's weight is 215 pounds. GATED STUDY: Resting LV ejection fraction 90% and stress LV ejection fraction 96% without any obvious wall motion abnormalities. Resting end- diastolic volume 80 mL. TID ratio 0.74 which is within normal limits. Lung/heart ratio 0.33, which is within normal limits. MYOCARDIAL PERFUSION SCAN: Stress supine and resting supine images were compared to each other. There are no prone images. There appears to be predominantly fixed, small size, mildly decreased perfusion of distal anterior wall extending into the distal anteroseptum. No reversible ischemia. Summed stress and summed rest score is zero. CONCLUSION: 1. No obvious reversible ischemia. 2. Predominantly fixed, small size, mildly decreased perfusion of distal anterior wall extending into the distal anteroseptum, which likely due to breast tissue attenuation artifact. Summed stress score and summed rest score is zero. Anterior wall, septum apex moving well. There is no wall motion abnormalities. On raw data, there is a breast shadow seen. The patient's weight is 215 pounds. There is no prone images. However, most likely this perfusion defect is due to tissue attenuation artifact based on above-mentioned reasons. Overall, low- risk myocardial perfusion scan. Natalia Amor - LENNOX/robb/leo doc#: [id number]/job#: [id number] dd: 06/17/2023 16:41:00 dt: 06/18/2023 03:33:00 DICTATING MD/COPIES TO: Nitish Mallory MD COPIES MNE: SONYA;
== END ==
LOC: ECHO 08:12
PROVIDERS: PCP Family Medicine; Referring Provider Internal Medicine Cardiovascular Disease; Visit Provider Internal Medicine Cardiovascular Disease
DX: I47.19 Other supraventricular tachycardia (principal); I10 Essential (primary) hypertension; R00.2 Palpitations
CPT/HCPCS: 78452; 93017; 93306; A9502

== ENCOUNTER → 2023-09-23 11:53 | Outpatient (CLI) | payer OTHER, SELFPAY ==
[2023-09-23 13:29] LABS: Blood Urea Nitrogen 11 mg/dL (7-17); Carbon Dioxide 25 mmol/L (22-32); Chloride 100 mmol/L (98-107); Estimated Glomerular Filt Rate > 60 mL/min (>60); Glucose 98 mg/dL (70-100); Potassium 3.9 mmol/L (3.4-5.1); Sodium 134 mmol/L (137-145)
[2023-09-23 13:30] LABS: HEMOLYSIS 60 (0-50)
== END ==
PROVIDERS: PCP Family Medicine; Referring Provider Internal Medicine Cardiovascular Disease; Visit Provider Internal Medicine Cardiovascular Disease
DX: I10 Essential (primary) hypertension (principal); E87.6 Hypokalemia
CPT/HCPCS: 36415; 80048

== ENCOUNTER → 2023-12-17 09:41 | Outpatient (CLI) | payer OTHER, SELFPAY ==
[2023-12-17 10:35] LABS: Add Manual Diff / Slide Review NO; Basophils Absolute Auto 100 /uL (0-100); Basophils Percent Auto 0.7 % (0-2); Eosinophils Absolute Auto 200 /uL (0-450); Eosinophils Percent Auto 2.3 % (2-4); Hematocrit 40.3 % (36-46); Lymphocytes Absolute Auto 2300 /uL (1100-4500); Lymphocytes Percent Auto 31.4 % (25-40); Mean Corpuscular HGB Conc 34.6 % (30-36); Mean Corpuscular Hemoglobin 31.8 PG (26-34); Monocytes Absolute Auto 600 /uL (0-900); Monocytes Percent Auto 7.6 % (3-14); Neutrophils Absolute Auto 4200 /uL (1500-7000); Platelet Count 382 X10^3/uL (150-400); Red Blood Cell Count 4.38 X10^6/uL (4.0-5.2); Red Cell Distribution Width 13.7 % (11.6-14.8); White Blood Cell Count 7.3 X10^3/uL (4.5-11.0)
[2023-12-17 11:08] LABS: Alanine Aminotransferase 21 IU/L (<35); Albumin 4.4 g/dL (3.5-5.0); Albumin Globulin Ratio 1.9 (1.0-2.8); Alkaline Phosphatase 48 U/L (38-126); Aspartate Aminotransferase 23 IU/L (14-36); BUN Creatinine Ratio 15.9 (6-22); Bilirubin Total 0.6 mg/dL (0.2-1.3); Blood Urea Nitrogen 11 mg/dL (7-17); Calcium 8.9 mg/dL (8.4-10.2); Carbon Dioxide 25 mmol/L (22-32); Chloride 101 mmol/L (98-107); Cholesterol 182 mg/dL (140-199); Estimated Glomerular Filt Rate > 60 mL/min (>60); Globulin 2.3 g/dL (1.7-4.1); Glucose 99 mg/dL (70-100); HDL Cholesterol 44 mg/dL (40-60); HEMOLYSIS < 15 (0-50); LDL Cholesterol Calculated 117 mg/dL (<100); Potassium 4.4 mmol/L (3.4-5.1); Sodium 136 mmol/L (137-145); Total Protein 6.7 g/dL (6.3-8.2); Triglycerides 107 mg/dL (35-150)
[2023-12-17 11:38] LABS: TSH w/ Reflex to FT4 5.17 uIU/mL (0.47-4.68)
[2023-12-17 11:55] LABS: Vitamin B12 897 pg/mL (239-931)
[2023-12-17 15:01] LABS: Free T4, Direct Thyroxine 1.11 ng/dL (0.78-2.19)
== END ==
PROVIDERS: PCP Family Medicine; Referring Provider Physician Assistant; Visit Provider Physician Assistant
DX: I10 Essential (primary) hypertension (principal); E78.5 Hyperlipidemia, unspecified; E03.9 Hypothyroidism, unspecified; R20.2 Paresthesia of skin; E53.8 Deficiency of other specified B group vitamins
CPT/HCPCS: 36415; 80053; 80061; 82607; 84439; 84443; 85025